=== PATIENT | male | born 1990 | race Caucasian/White ===

== ENCOUNTER 2023-10-21 05:57 | Emergency (ER) | payer SELFPAY ==
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
[2023-10-21 06:06] VITALS: BP 121/54; PULSE 110; RESP 18; TEMP 36.9; O2SAT 97; BMI 21.8
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
[2023-10-21] MEDS: Diphth,Pertus(ACell),Tet Adult 0.5 ML SYRINGE IM (08:00)
[2023-10-21] MEDS: Amoxicillin/Potassium Clav 875 MG TABLET PO (09:03)
[2023-10-21] MEDS: Cyclobenzaprine HCl 10 MG TABLET PO (09:03)
[2023-10-21] MEDS: HYDROcodone Bit/Acetam 5/325 TABLET 1 TAB PO (09:03)
[2023-10-21] MEDS: Lidocaine HCl 1 % MPF 5 ML VIAL SUBCUT (09:54)
[2023-10-21 10:25] VITALS: BP 104/84; PULSE 78; RESP 18; TEMP 37; O2SAT 97
== END 2023-10-21 10:26 | disposition home or self-care (01) ==
PROVIDERS: Emergency Provider Emergency Medicine
DX: S02.609A Fracture of mandible, unspecified, initial encounter for closed fracture (principal); S01.81XA Laceration without foreign body of other part of head, initial encounter; H11.32 Conjunctival hemorrhage, left eye; R51.9 Headache, unspecified; R40.2410 Glasgow coma scale score 13-15, unspecified time; Y00.XXXA Assault by blunt object, initial encounter; Y93.89 Activity, other specified; Y92.488 Other paved roadways as the place of occurrence of the external cause; Y99.8 Other external cause status; Z23 Encounter for immunization
CPT/HCPCS: 12015; 70450; 70486; 90471; 90715; 99284